=== PATIENT | female | born 1970 ===

== ENCOUNTER 2025-05-15 09:09 | Outpatient (AMB) | payer OTHER, SELFPAY ==
[2025-05-15 09:15] VITALS: BMI 31.3
--- NOTE | 2025-05-15 09:15 | A.PHYSOV ---
Vital Signs 05/15/25 09:15 Height 4 ft 10 in Weight 150 lb BMI 31.3 Intake Visit Reasons: F/U AFTER INJECTION 03/25/2025 Intake Note: Patient is a 54 year old female in office today for a follow up after Left L5 Transforaminal Epidural Injection 03/25/25. 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 She has a long-standing history of persistent lower back pain and left lumbar radiculitis, for which she has responded well to left L5 transforaminal injections over many years. She received a repeat injection on March 25, 2025, which she reports went well. She has been provided occasional prescriptions for morphine sulfate 15 mg for post-procedural pain. She reports new-onset left shoulder pain for the past 2-3 months. She denies any specific injury but notes the pain is exacerbated when sleeping on her left side and when her dog pulls on the leash, causing a pulling sensation. Overhead activities, particularly reaching backward, also cause pain. In addition, she reports new pain in her left wrist, which is tender to pressure and has a popping sensation with dorsal flexion. She has not had prior imaging or physical therapy for her shoulder or wrist. Patient is right-handed. Pain Description - Back Pain: The patient has chronic lower back pain and left lumbar radiculitis, which is managed with injections. - Left Shoulder Pain: The patient reports pain in her left shoulder for the last few months. - Exacerbating factors: The pain is worse when sleeping on her left side, with overhead activities such as reaching back, and when her dog pulls on the leash. - Left Wrist Pain: The patient experiences pain in her left wrist when pressure is applied. - Associated symptoms: She notes a popping sensation in her wrist with movement. Results - Procedures: The patient reports receiving a left L5 transforaminal injection on March 25, 2025, and reports it went well. COUNTS INCLUDE 234 BEDS AT THE [facility] Medical History (Updated 05/15/25 @ 12:23 by Madhav Coffey DO) Lumbar radiculitis Lumbar disc herniation Left wrist pain Left shoulder pain Rotator cuff impingement syndrome of left shoulder Surgical History (Updated 05/15/25 @ 09:17 by Mylene Valencia MA) S/P excision of lipoma (Unknown) History of (Unknown) H/O breast implant (Unknown) Social History (Updated 05/07/25 @ 14:02 by Mylene Valencia MA) Alcohol intake: current Alcohol intake frequency: holidays/special occasions only Patient Tobacco Use Status: Former Tobacco user Current occupational status: retired Review of Systems Narrative Review of Systems - Musculoskeletal: Reports chronic lower back pain, left lumbar radiculitis, left shoulder pain for 2-3 months, and left wrist pain with a popping sensation. - Constitutional: Denies recent injury. Patient denies any change in bowel bladder habits. She denies any fever or chills Physical Exam Exam Exam: Physical Exam - Left Upper Extremity: Pain is elicited with left shoulder range of motion testing. Positive Nichols and Neer signs, negative drop-arm test. Negative shoulder apprehension test. - The left wrist is tender to palpation and has a palpable pop with dorsiflexion movement. Neurological examination was nonfocal. She ambulates without antalgia. She was able to perform heel walk and toe walk with support for balance. Vital Signs: BMI result Body Mass Index 31.3 Assessment & Plan Assessment & Plan (1) Rotator cuff impingement syndrome of left shoulder: Code(s): M75.42 - Impingement syndrome of left shoulder Category: Medical (2) Left shoulder pain: Code(s): M25.512 - Pain in left shoulder Category: Medical Qualifiers: Chronicity: acute Qualified Code(s): M25.512 - Pain in left shoulder (3) Left wrist pain: Code(s): M25.532 - Pain in left wrist Category: Medical (4) Rotator cuff impingement syndrome of left shoulder: Code(s): M75.42 - Impingement syndrome of left shoulder Category: Medical (5) Left shoulder pain: Code(s): M25.512 - Pain in left shoulder Category: Medical Qualifiers: Chronicity: acute Qualified Code(s): M25.512 - Pain in left shoulder (6) Left wrist pain: Code(s): M25.532 - Pain in left wrist Category: Medical (7) Lumbar disc herniation: Code(s): M51.26 - Other intervertebral disc displacement, lumbar region Category: Medical (8) Lumbar radiculitis: Code(s): M54.16 - Radiculopathy, lumbar region Category: Medical Plan Pain Management - Analgesia: The patient receives left L5 transforaminal injections for chronic back pain and has found them effective. - The most recent injection was on March 25, 2025. - She is occasionally prescribed morphine sulfate 15 mg for post-procedural pain. - Activities of Daily Living: Left shoulder pain interferes with sleeping on her left side and walking her dog, left wrist pain without apparent injuries. Plan Patient was informed and verbally consented to the use of an ambient scribe for clinic note documentation during this visit. 1. Chronic Low Back Pain And Left Lumbar Radiculitis The patient has a history of left lumbar radiculitis and chronic low back pain, which is well-managed with left L5 transforaminal injections. She reports her recent injection on March 25, 2025, was successful. Will continue current management and monitoring for these conditions. 2. Left Shoulder Pain The patient presents with new left shoulder pain of 2-3 months' duration with findings suggestive of rotator cuff impingement. The initial plan involves conservative management. A referral will be provided for a left shoulder X-ray as a first step. A referral for physical therapy will also be given. A corticosteroid injection was discussed as a future option but will be deferred pending the results of PT. The plan is to follow up in late June to reassess symptoms. 3. Left Wrist Pain The patient also reports new left wrist pain with tenderness and a popping sensation. A referral will be provided for a left wrist X-ray. She will also receive a referral for physical therapy for the wrist. She will follow up in late June for reassessment. Discussion Notes I discussed with the patient that her chronic back and leg pain appears to be well-controlled following her recent injection. Regarding her new left shoulder and wrist pain, I explained that we would start with conservative management. I recommended obtaining X-rays of the left shoulder and wrist as a first step. I also provided a referral for physical therapy, which she can take to a facility of her choice after confirming they accept her insurance. We discussed a potential corticosteroid injection for the shoulder, but we agreed to defer this treatment until after a trial of physical therapy, especially given her existing injection schedule for her back. We will reassess her progress at a follow-up visit in late June, at which point an injection can be reconsidered if she is still symptomatic. The patient verbalized understanding and agreement with the plan. Patient Instructions - You will be given referrals to get X-rays done for your left shoulder and left wrist. - You will also receive a referral for physical therapy. - Please find a physical therapy center that is convenient for you and that takes your insurance. - Please try physical therapy before we consider other options like a steroid injection for your shoulder. - Schedule a follow-up appointment for late June to review your progress. Orders: Orders XR shoulder LT min 2V Today M25.512 - Pain in left shoulder, M75.42 - Impingement syndrome of left shoulder XR wrist LT 2V Today M25.532 - Pain in left wrist PT Evaluation and Treatment Today M25.512 - Pain in left shoulder, M25.532 - Pain in left wrist, M75.42 - Impingement syndrome of left shoulder Coding Level of Care Code Tele Est Pt Level 4 (48623) Complex visit Add On G2211 Diagnoses Rotator cuff impingement syndrome of left shoulder M75.42 Acute pain of left shoulder M25.512 Chronicity: acute Left wrist pain M25.532 Lumbar disc herniation M51.26 Lumbar radiculitis M54.16
--- OUTSIDE RECORDS SUMMARY | 2025-05-15 09:59 | XMS_ITS ---
[facility] Name [facility] Care Team Organization Name Specialty Phone Email Start Date End Da te [facility] 04/19/2022 01/29/2024
--- OUTSIDE RECORDS SUMMARY | 2025-05-15 10:00 | XMS_ITS | Clinical Summary ---
Author Organization [facility] Address [address] [place] [address] Phone Care Team Providers Care Endoscopy Registered Nurse Name Role Phone Gricel Ojeda MD Primary Care Prov ider Allergies Active Allergy Reactions Criticality Noted Date Comments Cat Dander High 04/13/2010 Cats Other Reaction(s): Hives/Urticaria Dog Dander Itching Low 07/18/2012 Dogs Haloperidol Dry Mouth Low 12/19/2022 States tongue protrudes Lactose Cramps Low 04/01/2015 Lactose Intolerance (Gi) Medications fluticasone propionate (FLONASE) 50 mcg/actuation nasal spray SPRAY ONCE INTO EACH NOSTRIL ONCE DAILY 16 g 5 05/22/20 24 Active docusate sodium (COLACE) 100 mg capsuleIndications :Drug induced constipation TAKE 1 CAPSULE BY MOUTH ONCE DAILY 30 capsule 5 05/22/20 24 Active Additional Information Patient not taking.Reported on 04/08/2025 hydrOXYzine HCL (ATARAX) 25 mg tablet at bedtime as needed. 12/21/19 23 Active LORazepam (ATIVAN) 1 mg tablet Take 1 tablet by mouth once a day as needed 02/20/20 24 Active traZODone (DESYREL) 50 mg tablet Take 1-2 tablet by mouth every night at bedtime as needed 03/02/20 24 Active valACYclovir (VALTREX) 500 mg tablet Take 1 tablet (500 mg total) by mouth 1 (one) time each day. 11/20/20 23 Active risperiDONE (RisperDAL M-TABS) 1 mg disintegrating tablet Dissolve 1 tablet (1 mg total) on top of the tongue 2 (two) times a day. Active kw-lz-wcow-FA-Ca carb-vit K (Women's Multivitamin) 18 mg-400 mcg- 500 mg-50 mcg tablet Take 1 each by mouth 1 (one) time each day. 90 tablet 1 09/03/19 25 026 Active tacrolimus (PROTOPIC) 0.03 % ointmentIndication s:Psoriasis, unspecified Apply sparingly twice a day to psoriasis if itchy 100 g 1 10/15/19 25 Active Vitamin D3 50 mcg (2,000 unit) capsule TAKE 1 CAPSULE BY MOUTH ONCE DAILY 90 capsule 1 11/28/19 25 Active buPROPion XL (WELLBUTRIN XL) 150 mg 24 hr tablet Take 1 tablet (150 mg total) by mouth 1 (one) time each day. 03/01/20 25 Active hydrOXYzine pamoate (VISTARIL) 50 mg capsule Take 1 capsule (50 mg total) by mouth 4 (four) times a day if needed. 05/02/20 24 Active lurasidone (LATUDA) 40 mg tablet Take 1 tablet (40 mg total) by mouth 1 (one) time each day. 03/24/20 25 Active melatonin 5 mg tablet Take 1 tablet (5 mg total) by mouth at bedtime as needed. at bedtime 01/01/20 25 Active Certavite-Antioxid ant 18-400 mg-mcg tablet tablet Take 1 tablet by mouth 1 (one) time each day. 03/24/20 25 Active nicotine (NICODERM CQ) 7 mg/[address] 1 patch on the skin 1 (one) time each day at the same time. 11/15/19 25 Active albuterol HFA (PROAIR HFA ; PROVENTIL HFA ; VENTOLIN HFA) 90 mcg/actuation inhaler Inhale 1 puff by mouth every 6 (six) hours if needed for wheezing. 6.7 g 3 04/08/20 25 Active tirzepatide, weight loss, (Zepbound) 2.5 mg/0.5 mL injection Inject 0.5 mL (2.5 mg total) under the skin every 7 (seven) days. 2 mL 04/08/20 25 025 Active Problems Problem Noted Date Diagnosed Date History of tobacco abuse 04/08/2025 History of marijuana use 04/08/2025 Genital herpes 05/21/2024 Mild intermittent asthma without complication Rheumatoid factor positive 08/18/2022 Pelvic inflammatory disease 06/02/2021 Episcleritis of right eye 04/10/2019 Overview (05/21/2024): Seen by Dr. 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 Asthma 09/29/2015 Atypical squamous cells of u ndetermined significance (ASCUS) on Papanicolaou smear of cervix 09/29/2015 Overview (05/21/2024): 06/25/13 Chronic allergic rhinitis 09/29/2015 Subcutaneous nodule 10/23/2014 Nonallopathic lesion of sacral region 08/07/2013 Overview (05/21/2024): IMO update Sprain of sacroiliac ligament 08/07/2013 Lactose intolerance 07/18/2012 Psychosis ([facility] V24, [facility] V28) 03/30/2012 Overview (05/21/2024): Admission [facility] 03/10/12 Flank pain 12/07/2009 Overview (05/21/2024): Cat scan abdomen 12/06/09 at [facility] with calcified denisty 3.x 5 mm right pelvis possibly in ureter. No hypdrouretor, no renal calcif, Hyperglycemia 10/30/2008 Vitamin D deficiency 10/30/2008 PTSD (post-traumatic stress disorder) 10/29/2008 Psoriasis 03/12/2008 Overview (05/21/2024): Scalp, bx 02/17 No showed to derm appt at [facility] 11/04/15, [phone], Dr Little Bipolar depression ([facility] V24, [facility] V28) Resolved Problems Problem Noted Date Diagnosed Date Resolved Date Tobacco use disorder 02/11/2006 025 Overview (05/21/2024): Quit 2008. Encounters Date Type Department Care Team Description 04/08/2025 1:30 PM EDT Office Visit Adult Medicine [address] [phone] Rolando Somers PA Bipolar depression (CMS/HCC V24, CMS/HCC V28) (Primary Dx); History of tobacco abuse; History of marijuana use; Class 2 drug-induced obesity with body mass index (BMI) of 35.0 to 35.9 in adult, unspecified whether serious comorbidity present; Immunization due 04/03/2025 Telephone Adult [facility] [address] [place] [phone] Gricel Candelario MD 03/25/2025 7:33 AM EDT Anesthesia Event [facility] [address] [place] [address] Abdulkadir Orozco MD Fox, Jillian OR 03/25/2025 7:00 AM EDT - 03/25/2025 11:59 PM EDT Hospital Encounter [facility] Xray [address] [place] [address] Pain Discharge Disposition: Home or Self Care 03/25/2025 6:15 AM EDT - 03/25/2025 11:59 PM EDT Hospital Encounter [facility] [address] [place] [address] Madhav Coffey DO Saliga, Jesse L, MD Swanson, Mona, CRNA Radiculopathy, lumbar region Discharge Disposition: Home or Self Care from Last 3 Months Immunizations Immunization Administration Dates Next Due H1N1 Inj Preservative Free 05/14/2009 Hepatitis A Pediatric (Havri x; Vaqta) 12mo to less than 19yo 07/30/2013,02/14/2013 Hepatitis B (Ylnklvn-V-Kufyz , Recombivax HB-Adult) 19yo and older 07/30/2013,04/03/2013,02/13/2013,05/11,06/21/2007,05/22/2007 Influenza Quadravalent, MDCK , 0.5ml, preservative free (Flucelvax) 6mo and older 02/20/2023 Influenza trivalent, 0.5mL, preservative free (Fluarix; FluLaval; Fluzone) ages 6mo and older (Afluria) 3 years and older 02/04/2020,04/21/2019,06/11/2018,03/12,06/26/2014,02/23/2013,03/21/2011 ,04/13/2010,04/10/2009,04/28/2008,04/13,04/12/2006 Influenza trivalent, MDCK, 0 .5mL, preservative free (Flucelvax) 6mo and older 04/08/2025 Influenza, Unspecified 02/20/2023,02/16/2022,09/2012 Measles 05/17/2007 Meningococcal MCV4P 01/07/2013 Moderna SARS-CoV-2 COVID-19, mRNA, LNP-S, preservative free 02/16/2022 Mumps 05/11/2007 PPD Test 05/22/2007 Pfizer SARS-CoV-2 COVID-19, mRNA, LNP-S, preservative free 03/23/2023 Pneumococcal polysaccharide 23 valent (Pneumovax 23) 2yo and older 10/29/2008 Rubella 05/11/2007 Td Tetanus diptheria (Tdvax) 7yo and older 05/03/2010 Tdap Tetanus diptheria acell ular pertussis (Boostrix; Adacel) 7yo and older 01/07/2013,05/10/2007 Zoster recombinant (Shingrix ) 19yo and older 02/16/2022 Surgical History Surgery Date Site/Laterality Comments SECTION x2 PROCEDURE: HISTORICAL OTHER SURGICAL HISTORY 10/2006 Bilateral PROCEDURE: IMPLANT BREAST SILICONE/EQ; COMMENT: saline implants OTHER SURGICAL HISTORY PROCEDURE: MI DILATION & CURETTAGE CERVICAL STUMP; COMMENT: historic BREAST SURGERY PROCEDURE: MI UNLISTED PROCEDURE BREAST COLONOSCOPY 03/04/2019 PROCEDURE: HISTORICAL COLONOSCOPY; COMMENT: External hemorrhoids, tortuous sigmoid, Dr. Farrell OTHER SURGICAL HISTORY PROCEDURE: HISTORY OTHER; COMMENT: liposuction- circumferential from abdomen to the knees per patient OTHER SURGICAL HISTORY PROCEDURE: HISTORY OTHER; COMMENT: lipomas, back and right &left lower leg BREAST ENHANCEMENT SURGERY W IMPLANT Bilateral SALINE IMPLANTS-10 PLUS YRS AGO Medical History Medical History Date Comments Tobacco use disorder 02/11/2006 DX:Tobacco use disorder Psoriasis 03/12/2008 DX:Psoriasis; CO MMENT: Scalp, bx 02/17 PTSD (post-traumatic stress disorder) 10/29/2008 DX:PTSD (post-traumatic stress disorder) Vitamin D deficiency 10/30/2008 DX:Vitamin D deficiency Hyperglycemia 10/30/2008 DX:Hyperglycemia Flank pain 12/07/2009 DX:Flank pain; C OMMENT: Cat scan abdomen 12/06/09 at [facility] with calcified denisty 3.x 5 mm right pelvis possibly in ureter. No hypdrouretor, no renal calcif, Marijuana abuse 08/25/2010 DX:Marijuana abu se Psychosis ([facility] V24, [facility] V28) 03/30/2012 DX:Psychosis ([facility]); COMMENT: Admission [facility] 03/10/12 Lactose intolerance 07/18/2012 DX:Lactose i ntolerance Sprain of sacroiliac ligament 08/07/2013 DX :Sprain of sacroiliac ligament Nonallopathic lesion of sacr al region, not elsewhere classified 08/07/2013 DX:Nonallopathic lesion of s acral region, not elsewhere classified Genital herpes DX:Genital herpe s Asthma 09/29/2015 DX:Asthma Chronic allergic rhinitis 09/29/2015 DX:Chr onic allergic rhinitis Subcutaneous nodule 10/23/2014 DX:Subcutane ous nodule Bipolar depression ([facility] V24, [facility] V28) 02/11/2006 DX:Bipolar depression ([facility]) Atypical squamous cells of undetermined significance (ASCUS) on Papanicolaou smear of cervix 09/29/2015 DX:Atypical squamous cell s of undetermined significance (ASCUS) on Papanicolaou smear of cervix; COMMENT: 06/25/13 H/O headache 09/29/2015 DX:H/O headache; COMMENT: ? 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 arrier Joint pain Radiculopathy Family History Medical History Relation Name Comments Mental illness Father Colon cancer Maternal Grandfather Colon cancer Maternal Grandmother Other: Alzhiemer's Maternal Grandmother Mental illness Mother No Known Problems Sister Breast cancer Neg Hx Relation Name Status Comments Father Alive Maternal Grandfather Maternal Grandmother Mother Alive Paternal Grandfather Paternal Grandmother Sister Alive Social History Tobacco Use Types Packs/Day Years Used Date Smoking Tobacco: Former Cigarettes 0.3 Q uit: 09/14/2015 Smokeless Tobacco: Never Tobacco Cessation:Counseling Given: Not Answered Alcohol Use Standard Drinks/Week Comments Not Currently 0 (1 standard drink = 0.6 oz pur e alcohol) Interpersonal Safety Answer Date Record ed Physical Abuse Unrecognized value 03/25/2025 Verbal Abuse Unrecognized value 03/25/2025 Comments No Sex and Gender Information Value Date Recorded Sex Assigned at Female 06/03/2024 6:45 AM EST Legal Sex Female 11:06 PM EST Gender Identity Female 06/03/2024 6:45 AM EST Sexual Orientation Straight 06/03/2024 6: 45 AM EST Obstetrics History Para Term AB IAB SAB Ectopic Multiple Livin g Live Births 2 2 2 2 Date Outcome GA Total Labor Labor/2nd/3rd Weight Sex Type Anes PTL Vicky A1 A5 Name Clin Term Term Last Filed Vital Signs Vital Sign Reading Time Taken Comments Blood Pressure 104/72 04/08/2025 1:20 PM EDT Pulse 84 04/08/2025 1:20 PM EDT Temperature 36.7 C (98.1 F) 03/25/2025 8:07 AM EDT Respiratory Rate 18 03/25/2025 8:11 AM EDT Oxygen Saturation 100% 03/25/2025 8:11 AM EDT Inhaled Oxygen Concentration - - Weight 76 kg (167 lb 9.6 oz) 04/08/2025 1:20 PM EDT Height 147.3 cm (4' 10 ) 04/08/2025 1:20 PM EDT Body Mass Index 35.03 04/08/2025 1:20 PM EDT Plan of Treatment Upcoming Encounters Date Type Department Care Team (Late st Contact Info) Description 07/10/2025 1:30 PM EST Office Visit Adult Medicine [facility] [address] [place] [phone] Rolando Somers PA [address] [place] [address] 08/19/2025 1:15 PM EDT Office Visit Adult Medicine - [place] [address] [place] [phone] Gricel Ojeda MD [address] [place] [address] 10/14/2025 1:20 PM EDT Appointment Radiology Department - [address] [phone] Health Maintenance Due Date Last Done Comments Hepatitis A Vaccines (1 of 2 - Risk 2-dose series) 12/14/1987 07/30/2013, 02/14/2013 Pneumococcal Vaccine: 50+ Years (2 of 2 - PCV) 10/29/2009 10/29/2008 RSV Immunization Adult Patients (1 - Risk 50-74 years 1-dose series) 2018 Medicare Annual Wellness Visit 05/21/2022 Social Influencers of Health Screening 05/21/2022 Depression Screening 06/12/2024 03/08/2024 COVID-19 Vaccine ( season) 2025 05/14/2024, 03/23/2023, 03/13/2023, Additional history exists Cervical Cancer Screening: Pap Smear 02/15/2025 02/15/2022 Breast Cancer Screening 10/12/2026 10/13/19 25, 10/11/2023, 10/11/2023, Additional history exists Colorectal Cancer Screening: Colonoscopy 03/04/2029 03/04/2019 Cholesterol Screening (Lipid Panel) 12/30/2029 12/30/2024, 03/26/2024, 03/26/2024 DTaP,Tdap,and Td Vaccines (5 - Td or Tdap) 12/17/2032 12/17/2022, 01/07/2013, 05/03/2010, Additional history exists HIV Screening Completed 10/29/2008 Hepatitis C Screening Completed 10/29/2008 Meningococcal ACWY Vaccine Aged Out 01/07/2013 N o longer eligible based on patient's age to complete this topic Hepatitis B Vaccines Completed 09/18/2015, 07/30/2013, 04/03/2013, Additional history exists MMR Vaccines Aged Out 09/18/2015, 11/15/2010 No lo nger eligible based on patient's age to complete this topic Zoster Vaccines Completed 05/30/2022, 02/16/2022 Influenza Vaccine Completed 04/08/2025, , 02/20/2023, Additional history exists HIB Vaccines Aged Out No longer eligi ble based on patient's age to complete this topic HPV Vaccines Aged Out No longer eligi ble based on patient's age to complete this topic IPV Vaccines Aged Out No longer eligi ble based on patient's age to complete this topic Meningococcal B Vaccine Aged Out No l onger eligible based on patient's age to complete this topic RSV Immunization Patients Under 20 months Aged Out No longer eligible based on patient's age to complete this topic Varicella Vaccines Aged Out No longer eligible based on patient's age to complete this topic Medical Devices Implanted Type Area Atomic Physics Teacher Device Identifier Shelf Expiration Date Model / Serial / Lot Breast Implants Breast Implants Bilateral: Breast Procedures Procedure Name Priority Date/Time Associated Diagnosis Comments LIPID PANEL WITH REFLEX TO DIRECT LDL Routine 12/30/2024 1:47 PM EDT Medication monitoring encounter MAMMO DIGITAL SCREENING W CARLO BILAT Routine 10/12/2024 11:27 AM EDT Encounter for screening mammogram for breast cancer DEPRESSION SCREENING Routine 03/08/2024 PAP SMEAR Routine 02/15/2022 COLONOSCOPY Routine 03/04/2019 HEPATITIS C SCREENING Routine 10/29/2008 HIV SCREENING Routine 10/29/2008 from Last 3 Months or Most Recently Relevant to Health Maintenance Results * Lipid panel with reflex to direct LDL (12/30/2024 1:47 PM EDT) Cholesterol 157 0 - 200 mg/dL LAB CHEMISTRY METHOD 12/30/2024 4:09 PM EDT [facility] Triglycerides 79 0 - 150 mg/dL LAB CHEMISTRY METHOD 12/30/2024 4:09 PM EDT [facility] HDL 68 >=40 mg/dL LAB CHEMISTRY METHOD 12/30/2024 4:09 PM EDT [facility] LDL Calculated 73 0 - 100 mg/dL LAB CHEMISTRY METHOD 12/30/2024 4:09 PM EDT [facility] VLDL Cholesterol Андрей 15.8 mg/dL LAB CHEMISTRY METHOD 12/30/2024 4:09 PM EDT [facility] Non HDL Chol. (LDL+VLDL) 89 <145 mg/dL LAB CHEMISTRY METHOD 12/30/2024 4:09 PM EDT [facility] Chol/HDL Ratio 2.3 0.0 - 4.4 LAB CHEMISTRY METHOD 12/30/2024 4:09 PM EDT [facility] Blood Venous blood specimen / Unknown Venipuncture / Unknown 12/30/2024 1:47 PM EDT 12/30/2024 1:47 PM EDT us Rolando FRANKS LAB BLOOD ORDERABLES Final Res ult [facility] [address] [place] [address], [place] [phone] * MG Mammo Digital Screening w Carlo bilat (10/12/2024 11:27 AM EDT) Anatomical Region Laterality Modality Breast Bilateral Mammography 10/12/2024 5:00 PM EDT Impressions 10/12/2024 5:03 PM EDT No mammographic evidence for malignancy. BI-RADS CATEGORY: 1 - NEGATIVE RECOMMENDATION: Screening bilateral mammogram is recommended in 1 year. Mammo Location: [facility], [address] [place] [address], [phone], . -------- FINAL REPORT -------- Dictated By: Macarena Khan Dictated Date: 10/12/2024 17:00 ET Assigned Physician: Macarena Khan Reviewed and Electronically Signed By: Macarena Khan Signed Date: 10/12/2024 17:03 ET Workstation ID: [id number] Transcribed By: Self Edit Transcribed Date: 10/12/2024 17:00 ET Narrative 10/12/2024 5:03 PM EDT Bilateral screening mammogram CLINICAL: 53 years old, Female, routine annual exam. COMPARISON: Prior studies, latest from 10/11/2023. TECHNIQUE: Bilateral MLO and CC views without and with implant displacement were obtained digitally with 2-D C views and 3-D mammogram (digital breast tomosynthesis). Computer-aided detection was utilized in evaluation of this exam (CAD). FINDINGS: There is no evidence of suspicious mass or architectural distortion. No worrisome calcifications are evident. Implants appear to be maintained. There has been no significant change from prior exam(s). BREAST DENSITY: C - The breasts are heterogeneously dense which may obscure small masses. Procedure Note Macarena Khan MD - 10/12/2024 Bilateral screening mammogram CLINICAL: 53 years old, Female, routine annual exam. COMPARISON: Prior studies, latest from 10/11/2023. TECHNIQUE: Bilateral MLO and CC views without and with implantdisplacement were obtained digitally with 2-D C views and 3-D mammogram(digital breast tomosynthesis). Computer-aided detection was utilized inevaluation of this exam (CAD). FINDINGS: There is no evidence of suspicious mass or architectural distortion. Noworrisome calcifications are evident. Implants appear to be maintained.There has been no significant change from prior exam(s). BREAST DENSITY: C - The breasts are heterogeneously dense which mayobscure small masses. IMPRESSION: No mammographic evidence for malignancy. BI-RADS CATEGORY: 1 - NEGATIVE RECOMMENDATION: Screening bilateral mammogram is recommended in 1 year. Mammo Location: [facility], [address] [place] [address], [phone], . -------- FINAL REPORT -------- Dictated By: Macarena Khan Dictated Date: 10/12/2024 17:00 ET Assigned Physician: Macarena Khan Reviewed and Electronically Signed By: Macarena Khan Signed Date: 10/12/2024 17:03 ET Workstation ID: [id number] Transcribed By: Self Edit Transcribed Date: 10/12/2024 17:00 ET Gricel Ojeda MD IMG BI PROCEDURES Final Result * Depression Screening (03/08/2024) Pathologist [facility] Depression Screening abstracted [facility] Provider HEALTH MAINTENANCE Final Result * Pap Smear (02/15/2022) [facility] Pap smear no interpretation , abstracted [facility] Provider HEALTH MAINTENANCE Final Result * Colonoscopy (03/04/2019) [facility] Colonoscopy abnormal, abstracted Anatomical Region Laterality Modality Other Result [facility] Provider HEALTH MAINTENANCE Final Result * HIV Screening (10/29/2008) [facility] HIV Screening abstracted Result [facility] Provider HEALTH MAINTENANCE Final Result * Hepatitis C Screening (10/29/2008) [facility] Hepatitis C Screening abstracted [facility] Provider HEALTH MAINTENANCE Final Result from Last 3 Months or Most Recently Relevant to Health Maintenance Insurance [facility] MEDICARE Member Subscriber Plan / Payer (Ef fective 2022-Present) Name:MAURA SHAW Relation to Subscriber:Self Name:ShawSariMaura Payer ID:[id number] Group ID:[id number] Type:Not on file Address: [address] [facility] [place] [id number] Care Teams Endoscopy Registered Nurse Relationship Specialty Start Date End Date Gricel Ojeda MD [address] [place] [phone] PCP - General Internal Medicine 11/17/20
== END 2025-05-15 09:44 | disposition home or self-care (01) ==
LOC: HO.HPHYS 09:09
PROVIDERS: PCP Internal Medicine; Visit Provider Physical Medicine & Rehabilitation
DX: M75.42 Impingement syndrome of left shoulder (principal); M25.512 Pain in left shoulder; M25.532 Pain in left wrist; M51.26 Other intervertebral disc displacement, lumbar region; M54.16 Radiculopathy, lumbar region
CPT/HCPCS: 99214; G2211

== ENCOUNTER → 2025-05-15 09:09 | Outpatient (BNVA) | payer OTHER, SELFPAY | PROVIDERS: PCP Internal Medicine; Visit Provider Physical Medicine & Rehabilitation | DX: M75.42 Impingement syndrome of left shoulder (principal); M25.532 Pain in left wrist; M51.16 Intervertebral disc disorders with radiculopathy, lumbar region | CPT/HCPCS: 99212 ==